=== PATIENT | female | born 1990 | race Caucasian/White ===

== ENCOUNTER 2016-07-24 07:34 | Inpatient (IN) ==
[2016-07-24 07:57] LABS: MANUAL DIFF NEEDED? NO
[2016-07-24 07:58] LABS: BASO% 0.5 % (0.0-0.8); EOS# 0.26 X1000 (0.0-0.7); EOS% 2.6 % (0.0-10.0); HEMATOCRIT 42.4 % (37.0-47.0); HEMOGLOBIN 14.8 g/dL (12.0-16.0); IMM GRAN# 0.02 X1000 (0.0-0.04); IMM GRAN% 0.2 % (0.0-0.5); LYMPH# 3.79 X1000 (1.2-3.4); LYMPH% 38.4 % (20.5-51.1); MCH 31.8 PG (27-31); MCHC 34.9 g/dL (33-37); MCV 91.2 FL (81-99); MONO# 0.72 X1000 (0.11-0.59); MONO% 7.3 % (1.7-9.3); PLT 299 X1000 (130-400); RBC 4.65 XMIL (4.2-5.4)
[2016-07-24 08:25] LABS: AGAP 12; ALBUMIN 4.7 g/dL (3.5-5.0); ALKALINE PHOSPHATASE 80 U/L (32-104); AMYLASE 45 U/L (20-200); BUN 13 mg/dL (8-22); CALCIUM 9.8 mg/dL (8.8-10.2); CHLORIDE 99 mmol/L (98-107); COSMO 273; GOT 14 U/L (10-30); GPT 14 U/L (10-36); LIPASE 37 U/L (13-60); SODIUM 136 mmol/L (136-145); TCO2 25 mmol/L (25-35); TOTAL BILIRUBIN < 0.15 mg/dL (0.20-1.00); TOTAL PROTEIN 7.6 g/dL (6.3-8.3)
[2016-07-24 08:27] LABS: BILIRUBIN URINE NEGATIVE (NEGATIVE); BLOOD URINE 1+ (NEGATIVE); CLARITY SL. CLOUDY (CLEAR); COLOR YELLOW; GLUCOSE URINE NEGATIVE (NEGATIVE); LEUKOCYTES URINE 2+ (NEGATIVE); NITRITE URINE NEGATIVE (NEGATIVE); PROTEIN URINE NEGATIVE (NEGATIVE); UROBILINOGEN URINE NORMAL
[2016-07-24 08:40] LABS: URINE CULTURE PL NEEDED? YES; URINE EPITHELIAL CELLS >10 /HPF (<10); URINE RBC <10 /HPF (<10); URINE SOURCE CLEAN CATCH
[2016-07-24] MEDS ORDERED: G.I. COCKTAIL PO ONE ×2 (09:07→10:18)
[2016-07-24] MEDS ORDERED: G.I. COCKTAIL ONE (09:08)
[2016-07-24] MEDS ORDERED: ZOFRAN ODT PO ONE (09:33)
[2016-07-24] MEDS ORDERED: NS 1,000 ML IV ONE (10:08)
[2016-07-24] MEDS ORDERED: NORCO-5 PO ONE (11:19)
--- NOTE | 2016-07-24 11:49 | Diag Imaging Result Doc PS360 ---
EXAM: US ABDOMEN-COMPLETE HISTORY: epigastric pain/? GB TECHNIQUE: COMPARISON: None. FINDINGS: Normal aorta and pancreas. Normal inferior vena cava. No focal hepatic abnormality. Normal right kidney. No hydronephrosis. There are several stones within the gallbladder. There appears to be a 1.2 cm nonmobile stone in the neck of the gallbladder. Gallbladder wall is not thickened. Common bile duct measures 5 mm. Normal right kidney. No hydronephrosis. Spleen is not enlarged. No ascites. Normal left kidney. No hydronephrosis. IMPRESSION: Cholelithiasis. There appears to be a stone which is nonmobile in the gallbladder neck. Electronically signed by Rafat Leonard 07/24/2016 11:47 AM
--- NOTE | 2016-07-24 12:14 | PROVIDER DOCUMENTATION ---
This chart was entered by Maryuri Rosas Scribe, acting as scribe for Francisco Javier Dunn MD. HPI-Abdominal Pain/GI Problem - General Chief Complaint: Epigastric Pain Stated Complaint: ABD PAIN Time Seen by Provider: 07/24/16 09:22 Source: patient Allergies/Adverse Reactions: Patient Allergies Allergy/AdvReac Type Severity Reaction Status Date / Time sulfamethoxazole Allergy Mild HIVES Verified 02/09/16 08:55 [From Bactrim] trimethoprim [From Bactrim] Allergy Mild HIVES Verified 02/09/16 08:55 Sulfa (Sulfonamide Allergy HIVES Verified 02/09/16 08:55 Antibiotics) Home Medications: Home Medication List Medication Instructions Recorded Confirmed Last Taken Type Clonidine [Catapres] 0.1 mg PO TID #10 tablet 03/03/15 Unknown Rx Cephalexin [Keflex] 500 mg PO BID #20 capsule 05/30/16 Unknown Rx Phenazopyridine HCl [Pyridium] 100 mg PO TID #6 tablet 05/30/16 Unknown Rx - History of Present Illness-ABD Nature of Presenting Problems: PT IS A 26YOF PRESENTING TO THE ED C/O ABD PAIN. PT STATES RIGHT AFTER EATING DINNER LAST PM SHE BEGAN HAVING SHARP/STABBING EPIGASTRIC PAIN THAT GOES THRU TO HER BACK. PT STATES SHE TRIED NUMEROUS OTC MEDS FOR THE STOMACH THINKING IT MAYBE INDIGESTION WITH NO RELIEF. WHEN PT ARRIVED TO ED SHE BEGAN VOMITING AND VOMITED UP THE GI COCKTAIL SHE WAS GIVEN. PT DENIES ANY DIARRHEA, FEVER, OR OTHER COMPLAINTS AT THIS TIME Abdominal Pain Onset Location: reports: epigastric Pain Radiation: reports: back Quality of Pain: reports: sharp, stabbing Severity in ED: reports: moderate Onset/Duration: reports: 24 hours ago Timing: reports: still present Activities at Onset: reports: light activity, eating Exposure to sick contacts?: No Modifying Factors: worse with: antacids, coughing, eating, other medication Associated Symptoms: reports: back/neck pain, heartburn, malaise, nausea, vomiting. denies: chest pain, constipation, diarrhea, shortness of breath, trouble walking Last BM: 24 hours ago Dark Stools Present?: reports: none noticed Rectal Bleeding: reports: none Rectal Pain: reports: none # of Vomiting Episodes: 2 Emesis Description: reports: none Bruising or Bleeding Gums?: No Similar Symptoms Previously?: No Recently seen or treated by another doctor?: No Review of Systems - Adult - REVIEW OF SYSTEMS - ADULT Constitutional: reports: no symptoms reported Eyes: reports: no symptoms reported Ears, Nose, Mouth & Throat: reports: no symptoms reported Cardiovascular: reports: no symptoms reported Respiratory: reports: no symptoms reported Gastrointestinal: reports: see HPI, abdominal pain, nausea, vomiting. denies: constipation, diarrhea, frequent heartburn Genitourinary: reports: no symptoms reported Musculoskeletal: reports: no symptoms reported Integumentary: reports: no symptoms reported Neurological: reports: no symptoms reported Psychiatric: reports: no symptoms reported Endocrine: reports: no symptoms reported Hematologic/Lymphatic: reports: no symptoms reported Allergic/Immunologic: reports: no symptoms reported All Other Systems: Reviewed and Negative Past History - Adult - PAST MEDICAL HISTORY-ADULT Review of Records: reports: Old Records Reviewed, Nursing Assessment Review, Medications Reviewed, Social history reviewed & non-contributory. Major Childhood Illnesses: reports: denies history Cardiovascular: reports: denies history Respiratory: reports: denies history Gastrointestinal: reports: denies history Obstetrical/Gynecological: reports: denies history Genitourinary: reports: denies history Musculoskeletal: reports: denies history Neurological: reports: denies history Endocrine/Immune: reports: denies history Other Conditions: reports: denies history - PRIOR SURGERIES/PROCEDURES Surgical/Procedure History: reports: - IMMUNIZATION STATUS Childhood Immunizations: See Nurse Assessment Flu Vaccine: See Nurse Assessment - FAMILY HISTORY Family History: reviewed, not pertinent - SOCIAL HISTORY Smoking: cigarettes, greater than 1 pack/day Provider spent 3-5 mins advising pt. on dangers of tobacco.: Discussed manners to quit use, and f/u contacts for add'l counseling. Substance Use: none/never, denies Alcohol Use Frequency: never Living Situation: family Physical Exam-General - PHYSICAL EXAM-ADULT Initial Vital Signs Reviewed: Yes - CONSTITUTIONAL General Appearance: appears well, alert, moderate distress. negative: no apparent distress - EYES Eyes: PERRL/EOMI, pink conjunctivae - HEAD, EARS, NOSE, MOUTH & THROAT HENMT: normocephalic/atraumatic, moist mucous membranes, normal ENT inspection, TMs normal, pharynx normal - NECK Neck: non-tender, full range of motion, supple, normal inspection - RESPIRATORY Respiratory: chest non-tender, lungs clear, normal breath sounds, no pleuratic chest pain, no respiratory distress, no accessory muscle use - CARDIOVASCULAR Cardiovascular: normal peripheral pulses, no edema, no gallop, no JVD, no murmur , tachycardia. negative: regular rate, rhythm - GASTROINTESTINAL (ABDOMEN) Abdominal Exam: normal bowel sounds, soft, no organomegaly, no pulsatile mass, tenderness. 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 negative: normal mood/affect Progress - PLAN OF CARE/RESULTS Progress/Plan/Lab Results: Vital Signs - 8 hr 07/24/16 07:37 Temperature 97.1 F L Pulse Rate 105 H Respiratory Rate 22 Blood Pressure 121/86 O2 Sat by Pulse Oximetry 100 Laboratory Results - last 24 hr 07/24/16 07/24/16 07/24/16 07:18 07:18 07:51 WBC RBC Hgb Hct MCV MCH MCHC RDW Std Deviation Plt Count MPV Immature Gran % (Auto) Neut % (Auto) Lymph % (Auto) [place] % (Auto) Eos % (Auto) Baso % (Auto) Immature Gran # (Auto) Neut # (Auto) Lymph # (Auto) [place] # (Auto) Eos # (Auto) Baso # (Auto) Sodium 136 Potassium 4.0 Chloride 99 Carbon Dioxide 25 Anion Gap 12 BUN 13 Creatinine 0.5 Estimated GFR/1.73 m2 > 60 BUN/Creatinine Ratio 26 Glucose 109 H Calculated Osmolality 273 Calcium 9.8 Total Bilirubin < 0.15 L AST 14 ALT 14 Alkaline Phosphatase 80 Total Protein 7.6 Albumin 4.7 Globulin 3.0 Albumin/Globulin Ratio 2.0 Amylase 45 Lipase 37 Urine Source CLEAN CATCH Urine Color YELLOW Urine Clarity SL. CLOUDY A Urine pH 6.0 Ur Specific [place] 1.020 Urine Protein NEGATIVE Urine Ketones NEGATIVE Urine Blood 1+ A Urine Nitrite NEGATIVE Urine Bilirubin NEGATIVE Urine Urobilinogen NORMAL Urine Microscopic RBC <10 Urine WBC 2+ A Urine Microscopic WBC 10-20 A Ur Epithelial Cells >10 A Urine Bacteria 1+ Urine Glucose NEGATIVE Urine Test NEGATIVE 07/24/16 07:51 WBC 9.88 RBC 4.65 Hgb 14.8 Hct 42.4 MCV 91.2 MCH 31.8 H MCHC 34.9 RDW Std Deviation 12.0 Plt Count 299 MPV 10.0 Immature Gran % (Auto) 0.2 Neut % (Auto) 51.0 Lymph % (Auto) 38.4 [place] % (Auto) 7.3 Eos % (Auto) 2.6 Baso % (Auto) 0.5 Immature Gran # (Auto) 0.02 Neut # (Auto) 5.04 Lymph # (Auto) 3.79 H [place] # (Auto) 0.72 H Eos # (Auto) 0.26 Baso # (Auto) 0.05 Sodium Potassium Chloride Carbon Dioxide Anion Gap BUN Creatinine Estimated GFR/1.73 m2 BUN/Creatinine Ratio Glucose Calculated Osmolality Calcium Total Bilirubin AST ALT Alkaline Phosphatase Total Protein Albumin Globulin Albumin/Globulin Ratio Amylase Lipase Urine Source Urine Color Urine Clarity Urine pH Ur Specific [place] Urine Protein Urine Ketones Urine Blood Urine Nitrite Urine Bilirubin Urine Urobilinogen Urine Microscopic RBC Urine WBC Urine Microscopic WBC Ur Epithelial Cells Urine Bacteria Urine Glucose Urine Test Orders Category Date Time Status NPO Diet 07/24/16 07:43 Active AMYLASE [CHEM] Stat Lab 07/24/16 07:51 Completed CBC WITH ELECTRONIC DIFF [HEME] Stat Lab 07/24/16 07:51 Completed CBC WITH ELECTRONIC DIFF [HEME] Stat Lab 07/24/16 09:34 Ordered CMP [COMPREHENSIVE METABOLIC PANEL] [CHEM] Stat Lab 07/24/16 09:33 Ordered COMPREHENSIVE METABOLIC PANEL [CHEM] Stat Lab 07/24/16 07:51 Completed LIPASE [CHEM] Stat Lab 07/24/16 07:51 Completed TEST-URINE [PREG] Stat Lab 07/24/16 07:18 Completed UCG [ TEST-URINE] [PREG] Stat Lab 07/24/16 07:[address] W/POSS RFLX CULT [URINALYSIS] Stat Lab 07/24/16 07:18 Completed URINE CULTURE [RM] Routine Lab 07/24/16 08:41 Ordered Lido/Reddy Alk/Al&mg Hydrox [G.i. Cocktail] Med 07/24/16 09:08 Discontinued 30 ml .ROUTE .STK-MED ONE Lido/Reddy Alk/Al&mg Hydrox [G.i. Cocktail] Med 07/24/16 09:07 Discontinued 30 ml PO NOW ONE Ondansetron Odt [Zofran Odt] Med 07/24/16 09:33 Discontinued 4 mg PO NOW ONE Laboratory Tests 07/24/16 07/24/16 07/24/16 07:18 07:18 07:40 WBC RBC Hgb Hct MCV MCH MCHC RDW Std Deviation Plt Count MPV Immature Gran % (Auto) Neut % (Auto) Lymph % (Auto) [place] % (Auto) Eos % (Auto) Baso % (Auto) Immature Gran # (Auto) Neut # (Auto) Lymph # (Auto) [place] # (Auto) Eos # (Auto) Baso # (Auto) Sodium Potassium Chloride Carbon Dioxide Anion Gap BUN Creatinine Estimated GFR/1.73 m2 BUN/Creatinine Ratio Glucose Calculated Osmolality Calcium Total Bilirubin AST ALT Alkaline Phosphatase Total Protein Albumin Globulin Albumin/Globulin Ratio Amylase Lipase Urine Source CLEAN CATCH Urine Color YELLOW Urine Clarity SL. CLOUDY A Urine pH 6.0 Ur Specific [place] 1.020 Urine Protein NEGATIVE Urine Ketones NEGATIVE Urine Blood 1+ A Urine Nitrite NEGATIVE Urine Bilirubin NEGATIVE Urine Urobilinogen NORMAL Urine Microscopic RBC <10 Urine WBC 2+ A Urine Microscopic WBC 10-20 A Ur Epithelial Cells >10 A Urine Bacteria 1+ Urine Glucose NEGATIVE Urine Test NEGATIVE NEGATIVE 07/24/16 07/24/16 07:51 07:51 WBC 9.88 RBC 4.65 Hgb 14.8 Hct 42.4 MCV 91.2 MCH 31.8 H MCHC 34.9 RDW Std Deviation 12.0 Plt Count 299 MPV 10.0 Immature Gran % (Auto) 0.2 Neut % (Auto) 51.0 Lymph % (Auto) 38.4 [place] % (Auto) 7.3 Eos % (Auto) 2.6 Baso % (Auto) 0.5 Immature Gran # (Auto) 0.02 Neut # (Auto) 5.04 Lymph # (Auto) 3.79 H [place] # (Auto) 0.72 H Eos # (Auto) 0.26 Baso # (Auto) 0.05 Sodium 136 Potassium 4.0 Chloride 99 Carbon Dioxide 25 Anion Gap 12 BUN 13 Creatinine 0.5 Estimated GFR/1.73 m2 > 60 BUN/Creatinine Ratio 26 Glucose 109 H Calculated Osmolality 273 Calcium 9.8 Total Bilirubin < 0.15 L AST 14 ALT 14 Alkaline Phosphatase 80 Total Protein 7.6 Albumin 4.7 Globulin 3.0 Albumin/Globulin Ratio 2.0 Amylase 45 Lipase 37 Urine Source Urine Color Urine Clarity Urine pH Ur Specific [place] Urine Protein Urine Ketones Urine Blood Urine Nitrite Urine Bilirubin Urine Urobilinogen Urine Microscopic RBC Urine WBC Urine Microscopic WBC Ur Epithelial Cells Urine Bacteria Urine Glucose Urine Test Orders Category Date Time Status [facility] [place]. N[place] Communication Order DIRECTED Care 07/24/16 09:36 Active NPO Diet 07/24/16 07:43 Active US ABDOMEN-COMPLETE [US] Stat Exams 07/24/16 10:06 Completed AMYLASE [CHEM] Stat Lab 07/24/16 07:51 Completed CBC WITH ELECTRONIC DIFF [HEME] Stat Lab 07/24/16 07:51 Completed COMPREHENSIVE METABOLIC PANEL [CHEM] Stat Lab 07/24/16 07:51 Completed LIPASE [CHEM] Stat Lab 07/24/16 07:51 Completed TEST-URINE [PREG] Stat Lab 07/24/16 07:18 Completed UCG [ TEST-URINE] [PREG] Stat Lab 07/24/16 07:[address] W/POSS RFLX CULT [URINALYSIS] Stat Lab 07/24/16 07:18 Completed URINE CULTURE [RM] Routine Lab 07/24/16 08:41 Ordered 0.9% Sodium Chloride Inj [Ns] 1,000 ml Med 07/24/16 10:08 Active IV 125 mls/hr Hydrocodone/APAP 5 mg/325 mg [[place]-5] Med 07/24/16 11:19 Discontinued 1 each PO NOW ONE Lido/Reddy Alk/Al&mg Hydrox [G.i. Cocktail] Med 07/24/16 09:08 Discontinued 30 ml .ROUTE .STK-MED ONE Lido/Red[place] Alk/Al&mg Hydrox [G.i. Cocktail] Med 07/24/16 09:07 Discontinued 30 ml PO NOW ONE Lido/Reddy Alk/Al&mg Hydrox [G.i. Cocktail] Med 07/24/16 10:18 Discontinued 30 ml PO NOW ONE Ondansetron Odt [Zofran Odt] Med 07/24/16 09:33 Discontinued 4 mg PO NOW ONE Vital Signs - 24 hr 07/24/16 07:37 Temperature 97.1 F L Pulse Rate 105 H Respiratory Rate 22 Blood Pressure 121/86 O2 Sat by Pulse Oximetry 100 Result Diagrams: 07/24/16 07:51 07/24/16 07:51 - ULTRASOUND (By Radiology) 1 US Study: Gallbladder Impression: Abnormal (CHOLELITHIASIS. THERE APPEARS TO BE A STONE WHICH IS NONMOBILE IN THE GALLBLADDER NECK - HURST) - CONSULTS/PCP/HOSPITALIST Notification #1 *Consult/PCP/Hospitalist*: SAE Time Discussed: 12:08 (CONSULT FOR OR) Reason/Comments: DR QUEVEDO WILL EVAL US AND MAKE DECISION REGARDING SURG Consult Disposition: other #2 Consult: SAE Time Discussed: 12:11 Reason/Comments: DR QUEVEDO WILL SCHEDULE HER FOR SURG TODAY IN OR Consult Disposition: Admit Departure - Departure Date of Disposition Decision: 07/24/16 Time of Disposition Decision: 12:11 DIAGNOSIS: Cholelithiasis and acute cholecystitis without obstruction Disposition: ADMITTED INPATIENT 09 Certified Medical Emergency: Emergent Condition: Stable Additional Freetext Instructions: ED Follow Up Instructions: You have been treated by a care provider in the Emergency Department. These instructions are being provided to you so you can have an understanding of how to care for yourself upon discharge. Upon discharge from the Emergency Department, you are responsible for making arrangements for follow-up care by a physician of your choice. Take all prescribed medications as directed. Return to the Emergency Department immediately for any new or worsening symptoms. You may call the Physician Referral phone number at [phone] to obtain a list of Physicians who are taking new patients. Referrals and Follow-Ups: None,PCP [Primary Care Provider] - - Critical Care Note This patient required my direct & personal management of CC.: No This chart was documented by the indicated scribe, (Maryuri Rosas Scribe) and accurately reflects the services I performed and decisions made by me, Francisco Javier Dunn MD, as attested by the provider's signature.
[2016-07-24] MEDS ORDERED: LR 1,000 ML ONE (16:05)
[2016-07-24] MEDS ORDERED: SODIUM CHLORIDE 0.9% ONE (16:05)
[2016-07-24] MEDS ORDERED: MARCAINE 0.25% PF/EPI 1:200,000 ONE (16:05)
[2016-07-24] MEDS ORDERED: KEFZOL 1 GM/D5W 1 GM/50 ML IVPB ONE (16:14)
--- NOTE | 2016-07-24 17:03 | Diag Imaging Result Doc PS360 ---
EXAM: OPERATIVE CHOLANGIOGRAM HISTORY: CHOLELITHIASIS TECHNIQUE: One view intraoperative spot COMMENT: There is contrast in the cystic duct which appears somewhat distended and the common hepatic duct which is somewhat narrowed. The common bile duct is apparently normal in caliber without evidence of filling defect. IMPRESSION: No definite evidence of intraductal stones. Electronically signed by Braxton Kulkarni 07/24/2016 5:01 PM
[2016-07-24] MEDS ORDERED: LR 500 ML ONE (17:33)
[2016-07-24] MEDS ORDERED: FENTANYL ONE (17:37)
[2016-07-24] MEDS ORDERED: DIPRIVAN 1% ONE (17:37)
--- NOTE | 2016-07-24 17:43 | OPERATIVE NOTE ---
PROCEDURE DATE: 07/24/2016 PROCEDURE PERFORMED: Laparoscopic cholecystectomy with operative cholangiogram. SURGEON: Samuel Hanna MD. ACCOUNT SERVICES REPRESENTATIVE: Sade Najera. PREOPERATIVE DIAGNOSIS: Acute calculous cholecystitis. POSTOP DIAGNOSIS: Acute calculous cholecystitis. FINDINGS: The cholangiogram revealed possibly a stone in the cystic duct. There was no stones in the common duct. There was free flow in the duodenum. DESCRIPTION OF PROCEDURE: After satisfactory general endotracheal anesthesia achieved, the abdomen was prepped and draped in a sterile fashion. We anesthetized the skin at the base of the umbilicus, incised the skin, and used a 5 mm Optiview technique to enter the abdominal cavity. We insufflated through this trocar under direct visualization. A 5 trocar in the midclavicular line, 5 trocar near the anterior axillary line, and an 11 mm trocar in the midepigastrium. We placed the patient in reverse Trendelenburg and turned her to the left. We grasped the fundus of the gallbladder, reflected it cephalad, and began dissection of the triangle of [place]. We identified the cystic duct, clipped in entrance of the gallbladder, incised the cystic duct and introduced a Tyler catheter. We shot the cholangiogram. The findings above were noted. We removed the cholangiogram catheter, clipped the cystic duct on the opposite side of cystic ductotomy x2 and transected it. The cystic artery was clipped proximally x2, distally x1, and divided. We then used the cautery spatula to dissect the gallbladder away from the liver. The gallbladder wall was quite edematous. After complete separation of gallbladder from the wall, we left the videolaparoscope in the umbilical trocar site. We introduced an EndoCatch to the epigastric trocar site, placed the gallbladder within the bag. We enlarged the fascial incision in the epigastrium enough to deliver the gallbladder out of the abdominal cavity. We then reapproximated the fascia with 2-0 Polysorb fascial stitches and the epigastrium. We then closed the skin at each incision with 4-0 Polysorb subcuticular stitch and sterile OpSite were applied. She tolerated it well. She was sent to the recovery room in satisfactory condition. cc: Samuel Hanna MD
[2016-07-24] MEDS: MORPHINE ONE ×2 (17:44→17:52)
[2016-07-24] MEDS ORDERED: PHENERGAN ONE (17:57)
[2016-07-24] MEDS ORDERED: MORPHINE ONE (18:05)
[2016-07-24] MEDS ORDERED: MORPHINE IV PRN (18:19)
[2016-07-24] MEDS ORDERED: NS 1,000 ML IV SCH (18:19)
[2016-07-24] MEDS ORDERED: ZOFRAN IV PRN (18:19)
[2016-07-24] MEDS: NORCO-10 PO PRN (21:09)
[2016-07-24] MEDS: PERIDEX MT SCH (21:10)
[2016-07-25] MEDS: NORCO-10 PO PRN ×2 (01:23→05:59)
[2016-07-25 07:30] VITALS: BP 116/80
[2016-07-25] MEDS: PERIDEX MT SCH (09:03)
[2016-07-25] MEDS ORDERED: ZOFRAN ONE (09:25)
[2016-07-25] MEDS ORDERED: NEOSTIGMINE ONE (09:25)
[2016-07-25] MEDS ORDERED: LR 1,000 ML ONE (09:25)
[2016-07-25] MEDS ORDERED: XYLOCAINE-MPF 2% ONE (09:25)
[2016-07-25] MEDS ORDERED: ZEMURON ONE (09:25)
[2016-07-25] MEDS ORDERED: ROBINUL ONE (09:25)
[2016-07-25] MEDS ORDERED: DECADRON ONE (09:25)
[2016-07-25] MEDS ORDERED: QUELICIN (DOSE) ONE (09:25)
== END 2016-07-25 09:53 | disposition home or self-care (01) ==
LOC: P.ED 07:34 → 4N 12:33
PROVIDERS: ADMIT Surgery; ATTEND Surgery